=== PATIENT | female | born 1990 | race Caucasian/White ===

== ENCOUNTER 2024-07-03 20:03 | Outpatient (REF) | payer BC, SELFPAY | END 2024-07-03 20:04 | disposition home or self-care (01) | LOC: LAB 20:03 | PROVIDERS: PCP Family Medicine; Visit Provider Nurse Practitioner | DX: Z01.419 Encounter for gynecological examination (general) (routine) without abnormal findings (principal); N89.8 Other specified noninflammatory disorders of vagina | CPT/HCPCS: 87491; 87591; 87624; 87661; 88175 ==